=== PATIENT | female | born 1955 | race Caucasian/White ===

== ENCOUNTER 2021-07-16 05:02 | Observation (INO) ==
--- NOTE | 2021-06-11 11:11 | PAT Medication Instructions ---
Medication Instructions Date of Service June 11, 2021 Home Medications cholecalciferol (vitamin D3) 25 mcg (1,000 unit) tablet (Vitamin D3) 25 mcg PO QAM coQ10 (ubiquinol) 100 mg capsule 100 mg PO QAM ibuprofen 200 mg tablet 400 mg PO Q6H PRN lisinopril 2.5 mg tablet 2.5 mg PO QAM multivitamin 1 tab PO QAM ASK your surgeon for instructions ibuprofen 200 mg tablet 400 mg PO Q6H PRN STOP taking 2 weeks before surgery (or as soon as possible if surgery is within 2 weeks) coQ10 (ubiquinol) 100 mg capsule 100 mg PO QAM DO NOT take the morning of surgery cholecalciferol (vitamin D3) 25 mcg (1,000 unit) tablet (Vitamin D3) 25 mcg PO QAM lisinopril 2.5 mg tablet 2.5 mg PO QAM multivitamin 1 tab PO QAM Other Notes If you have any questions please call us at [phone] or [phone] or [phone] or [phone]
--- NOTE | 2021-06-13 11:25 | Anesthesiology Consultation ---
Date of Service June 13, 2021 Assessment & Plan (1) Encounter for pre-operative examination: - PCP pre-op appointment 06/19/2021 [facility] per pt and [facility] records. - Outpatient joint assessment: Patient is currently scheduled for inpatient pathway. If re-evaluated pending system levels during current pandemic/surgeon requests outpatient pathway, patient is acceptable candidate for outpatient joint program from anesthesia standpoint pending surgeon's office assessment of pt motivation/support/completion of same day joint program preop requirements. - COVID screening: Per assessment on 06/13/2021: Travel screen[place] , no known COVID-19 positive contacts or current COVID-19 related symptoms. Patient vaccinated. Surgeon arranging preop COVID testing, scheduled 07/14/2020 [place]. Awaiting results. Chart Review Chart Review: Acceptable Risk for Surgery (pending most recent PCP note) and Patient seen in Pre Admission Testing Teaching & Discussion Pre-Anesthesia Teaching/Discussion Notes: Instructed NPO after midnight before surgery, except medications with 15 cc of water. Medication instructions provided according to the PAT guidelines. History Surgery Operation Date: 07/16/21 07:15 Proposed Procedures p Left Total Knee Arthroplasty, Hardware Removal - Moises Melvin MD Height/Weight Height: 5 ft 7 in Weight: 63.5 kg Allergies Allergy/AdvReac Type Severity Reaction Status Date / Time No Known Allergies Allergy Verified 06/11/21 09:49 Medications Home Medications Medication Instructions Recorded Confirmed Last Taken cholecalciferol (vitamin D3) 25 25 mcg PO QAM 06/11/21 06/11/21 Unknown mcg (1,000 unit) tablet (Vitamin D3) coQ10 (ubiquinol) 100 mg capsule 100 mg PO QAM 06/11/21 06/11/21 Unknown ibuprofen 200 mg tablet 400 mg PO Q6H PRN 06/11/21 06/11/21 Unknown lisinopril 2.5 mg tablet 2.5 mg PO QAM 06/11/21 06/11/21 Unknown multivitamin 1 tab PO QAM 06/11/21 06/11/21 Unknown Past Medical History Medical History (Updated 06/13/21 @ 11:47 by Yoli Araujo PA-C) Arthritis Hypertension controlled, stable per pt Patient denies h/o stroke, seizures, heart attack, heart failure, DM, blood clots or blood transfusions. Exercise / Class Metabolic Activity II 4-5 Yardwork/Stairs/Walk up hill (denies CP or SOB with 1 FOS) Past Family History Family History Other No family history of adverse response to anesthesia Past Surgical History Surgical History (Updated 06/13/21 @ 11:47 by Yoli Araujo PA-C) Bone spur left knee H/O knee surgery ACL REPAIR + MENISCUS REPAIR (WITH SCREW) H/O rhinoplasty History of carpal tunnel release RT History of colonoscopy History of repair of retinal tear by laser photocoagulation RT/LEFT Past Anesthesia History No Hx of Anesthesia Complications and No Family Hx of Anesthesia Complications History of PONV No Hx of PONV and No Hx of Motion Sickness Social History Smoking Status: Former smoker tobacco type: cigarettes Do You Dip or Chew Tobacco: No Smoking End Date: 13 yrs ago-few cigarettes daily x 30 yrs Hx Alcohol Use: Yes Alcohol type: wine alcohol intake frequency: 0-2 drinks per day (1-2 alcoholic drinks daily) substance use type: does not use Review of Systems Occasional snoring, denies witnessed apneas or sleep studies. She reports nonproductive cough since starting lisinopril, increased somewhat with recent sinusitis and resolving. Patient denies chest pain, shortness of breath, dyspnea on exertion, reflux, fever, chills, wheezing, or palpitations. Physical Exam Vital Signs Vitals BP 127/71 P 69 TEMP 98.3 SP02 96% on RA RESP 17 Physical Full cervical extension range of motion without pain Full TMJ range of motion TMD 3.5 finger breaths Mallampati Score 2 Dentition: intact, caps two back lower bilat and one top left; denies missing, chipped teeth or loose teeth, implants or bridges Lungs: normal respiratory effort. Clear throughout to auscultation, no adventitious breath sounds Cardiac: regular rate and rhythm, no murmurs noted Carotid arteries: negative bruit bilat Extremities: no distal extremity edema Lab Results Anesthesia Preop Results Results Anesthesia Widget: WBC 6.43 K/uL (4.8-10.8) 06/13/21 Hgb 14.8 g/dL (12.0-16.0) 06/13/21 Hct 46.2 % (37-47) 06/13/21 Plt 303 K/uL (130-400) 06/13/21 Na 141 mmol/L (136-145) 06/13/21 K 4.1 mmol/L (3.5-5.1) 06/13/21 Cl 106 mmol/L (98-107) 06/13/21 CO2 31 mmol/L (21-32) 06/13/21 BUN 20 mg/dl (7-18) H 06/13/21 Creat 0.83 mg/dl (0.6-1.2) 06/13/21 Glucose Level 93 mg/dl (70-99) 06/13/21 PT 10.3 Seconds (9.0-12.0) 06/13/21 PTT 25.5 Seconds (21.0-31.0) 06/13/21 INR 1.0 (0.9-1.1) 06/13/21 HA1c 5.4 % (4.5-5.6) 06/13/21 Urine Color Yellow 06/13/21 Urine Appearance Clear (Clear) 06/13/21 Urine pH 7.0 (4.5-7.5) 06/13/21 Urine Specific [place] 1.013 (1.000-1.030) 06/13/21 Urine Protein Negative (Negative) 06/13/21 Urine Glucose (UA) Negative (Negative) 06/13/21 Urine Ketones Negative (Negative) 06/13/21 Urine Blood Negative (Negative) 06/13/21 Urine Nitrite Negative (Negative) 06/13/21 Urine Bilirubin Negative (Negative) 06/13/21 Urine Urobilinogen Negative (Negative) 06/13/21 Urine Leukocyte Esterase Negative (Negative) 06/13/21 Blood Type O Positive 06/13/21 Antibody Screen NEGATIVE 06/13/21 Testing Electrocardiogram Date: 06/13/21 Normal sinus rhythm, rate 65 bpm. Chest X-Ray Date: 06/13/21 No acute process.
--- NOTE | 2021-07-15 17:20 | History & Physical Report ---
Date of Service July 15, 2021 Assessment & Plan (1) Primary osteoarthritis of left knee: Plan: Treatment options discussed with the patient. She has severe left knee osteoarthritis. She would like to proceed with surgical intervention. Risks, benefits and alternatives to surgery including but not limited to infection, DVT, pain, stiffness, need for revision surgery, damage to blood vessels, damage to nerves, PE, , were discussed with the patient and they wish to proceed. Plan on left total knee arthroplasty at [facility] scheduled for 07/16/21. Will plan on home health vs OPPT post op. Will plan on aspirin 81mg BID for 1 mo post op. Will require Dilaudid po as her post operative pain medication. All questions answered. F/u post op. History of Present Illness Chief Complaint: Left knee pain Primary Care Provider: NO PCP 65 year old female with PMHx significant for HTN presents with ongoing left knee pain. Gallito has failed conservative measures including injections and anti- inflammatories. She has pain interfering with her daily activities. She would like to proceed with knee replaccement. Patient denies headaches, sweats, fevers, chills, double vision, blurred vision, cough, sore throat, dysphagia, chest pain, sob, wheezing, n/v/d/c, numbness, tingling, fatigue, urinary symptoms, mood disorders. ROS positive for left knee pain and stiffness. Allergies Allergy/AdvReac Type Severity Reaction Status Date / Time No Known Allergies Allergy Verified 06/11/21 09:49 Home Medications Medication Instructions Recorded Confirmed Type cholecalciferol (vitamin D3) 25 25 mcg PO QAM 06/11/21 06/11/21 History mcg (1,000 unit) tablet (Vitamin D3) coQ10 (ubiquinol) 100 mg capsule 100 mg PO QAM 06/11/21 06/11/21 History ibuprofen 200 mg tablet 400 mg PO Q6H PRN 06/11/21 06/11/21 History lisinopril 2.5 mg tablet 2.5 mg PO QAM 06/11/21 06/11/21 History multivitamin 1 tab PO QAM 06/11/21 06/11/21 History Past Med/Surg History Medical History (Updated 07/15/21 @ 17:26 by Chandler Baker) Arthritis Hypertension controlled, stable per pt Surgical History (Updated 06/13/21 @ 11:47 by Yoli Araujo PA-C) Bone spur left knee H/O knee surgery ACL REPAIR + MENISCUS REPAIR (WITH SCREW) H/O rhinoplasty History of carpal tunnel release RT History of colonoscopy History of repair of retinal tear by laser photocoagulation RT/LEFT Family History Other No family history of adverse response to anesthesia Social History Smoking Status: Former smoker Second Hand Exposure: No; Hx Alcohol Use: Yes Alcohol type: wine Preferred Language: Tajik Cotton Opener Required: No Beliefs That Will Affect Care: None Current Living Situation: Spouse Feels Safe at Home: Yes Assistive Devices: Brace/Splint/Immobilizer Review of Systems All systems reviewed & are unremarkable except as noted in HPI & below Physical Exam Constitutional: well developed and well nourished; no acute distress Eyes: PERRL, conjunctivae normal, anicteric sclerae ENMT: external ear and nose normal, oropharynx normal Neck: trachea midline, no thyromegaly Respiratory: normal respiratory effort, lungs clear to auscultation Cardiovascular: RRR, no murmur, no edema Musculoskeletal: Left knee: Varus alignment. Mild effusion. Tenderness medial joint line. Stable to valgus and varus stress, negative Reba's. ROM is about 5-130 degrees. Skin: no rashes, warm and dry Neurologic: patellar DTR's 2+ bilat, sensation intact Psychiatric: A+Ox3, euthymic affect Results & Data ([facility]) Diagnostic Findings Left knee radiographs: Tricompartmental degenerative changes with severe joint space narrowing, bone on bone medial compartment with bone loss. Has a tibial screw consistent with prior ACL reconstruction.
[2021-07-16] MEDS ORDERED: dexAMETHasone 4 MG TAB PO SCH (06:00)
[2021-07-16] MEDS ORDERED: TRANEXAMIC ACID 1,000 MG **IV Pre-op IV SCH (06:00)
[2021-07-16] MEDS ORDERED: ceFAZolin 1000MG 1,000 MG/7.5 ML SYR IV SCH (06:00)
[2021-07-16] MEDS ORDERED: TRANEXAMIC ACID 1,000 MG **IV Intra-op IV SCH (06:00)
[2021-07-16] MEDS ORDERED: CeleBREX 200 MG CAP PO SCH (06:00)
[2021-07-16] MEDS ORDERED: FAMOTIDINE 20 MG TAB PO SCH (06:00)
[2021-07-16] MEDS ORDERED: ACETAMINOPHEN 500 MG TAB PO SCH (06:00)
[2021-07-16] MEDS ORDERED: ROPIVACAINE 0.5% HCL/PF 150 MG, BUPIVACAINE 0.75% MPF 20 ML, EPINEPHrine 30MG/30ML (OR ... INSTIL SCH (06:00)
[2021-07-16] MEDS ORDERED: METOCLOPRAMIDE HCL 10 MG TABLET PO SCH (06:00)
[2021-07-16] MEDS ORDERED: LR 500ML BOLUS, THEN 15ML/HR IV SCH (06:00)
[2021-07-16] MEDS ORDERED: GABAPENTIN 600 MG DOSE PO SCH (06:00)
[2021-07-16] MEDS ORDERED: BUPIVACAINE 0.5 % 5 MG/1 ML PF 10ML VIAL ONE (06:22)
[2021-07-16] MEDS ORDERED: fentaNYL citrate 100 MCG/2 ML VIAL ONE (06:38)
[2021-07-16] MEDS ORDERED: MIDAZOLAM HCL 1 MG/ML 2ML VIAL ONE (06:38)
[2021-07-16] MEDS ORDERED: ATROPINE SULFATE 0.1 MG/ML 10ML SYR IV PRN (06:41)
[2021-07-16] MEDS ORDERED: ePHEDrine sulfate 50 MG/ML AMP IV PRN (06:41)
[2021-07-16] MEDS ORDERED: fentaNYL citrate 100 MCG/2 ML VIAL IV PRN (06:41)
[2021-07-16] MEDS ORDERED: ONDANSETRON INJ 2 MG/ML 2 ML VIAL IV PRN ×2 (06:41→11:08)
[2021-07-16] MEDS ORDERED: LIDOCAINE 2% 2 ML VIAL/AMP(20MG/ML) INFIL ONE (06:42)
[2021-07-16] MEDS ORDERED: PROPOFOL IV EMULSION 10 MG/ML 20 ML VIAL IV ONE (06:42)
[2021-07-16] MEDS ORDERED: ORTHO JOINT ANESTHETIC ONE (06:43)
--- NOTE | 2021-07-16 07:13 | History & Physical Bridge Note ---
Date of Service July 16, 2021 History & Physical Bridge Note I have examined the patient, reviewed the History & Physical and in the interval since the performance of the History & Physical I have noted the following changes of clinical significance: no changes noted
[2021-07-16] MEDS ORDERED: ONDANSETRON INJ 2 MG/ML 2 ML VIAL ONE (08:00)
[2021-07-16] MEDS ORDERED: TRANEXAMIC ACID / 0.7% NACL 1000MG/100ML BAG IV ONE ×2 (08:32)
--- NOTE | 2021-07-16 09:52 | Post Operative Brief Note ---
Immediate Post Op Note v1 Date of Surgery July 16, 2021 Pre & Post Diagnosis Operation Date: 07/16/21 07:00 Pre-Op Diagnosis: Osteoarthritis, Left Knee, history of prior ACL reconstruction with retained hardware Post-Op Diagnosis: Osteoarthritis, Left Knee, history of prior ACL reconstruction with retained hardware I identified the patient and participated in the time-out.: Yes Procedure Operation Date: 07/16/21 07:00 Actual Procedures p Left Total Knee Arthroplasty, lateral release, hardware Removal(Left) - Moises Melvin MD Surgeon Moises Melvin MD Trans Router Shaheen VIDES Estimated Blood Loss 5 Findings Consistent with Post-Op Diagnosis Drains Hemovac Drain Anesthesia Type MAC Spinal Regional Complications none Disposition Disposition: Recovery Room Overlapping Procedure I was immediately available: during the entire case.
--- NOTE | 2021-07-16 10:09 | Operative Report ---
Post Operative Report Pre & Post Diagnosis Operation Date: 07/16/21 07:00 Pre-Op Diagnosis: Left knee end-stage osteoarthritis history of prior ACL reconstruction with retained hardware tibia Post-Op Diagnosis: Left knee end-stage osteoarthritis history of prior ACL reconstruction with retained hardware tibia I identified the patient and participated in the time-out.: Yes Procedure Operation Date: 07/16/21 07:00 Actual Procedures p Left Total Knee Arthroplasty, Hardware Removal(Left) - Moises Melvin MD Surgeon Moises Melvin MD Administrative Aide Shaheen VIDES Estimated Blood Loss 5 Findings Consistent with Post-Op Diagnosis Specimens Bone cuts Drains 2 Hemovac Anesthesia Type MAC Spinal Regional Complications none Disposition Accompanied Patient To Recovery: Yes Indications 65 female history of ACL reconstruction with clinically failed ACL reconstruction and progressive osteoarthritis now [id number] medial compartment with a varus knee tricompartmental osteoarthritic changes. Patient has pain and instability. Description of Procedure Patient was taken to the operating room placed supine on the operating table and anesthetized under spinal MAC regional block anesthesia. Exam under anesthesia demonstrated positive Diamond exam no endpoint no collateral instability with a varus knee small effusion. She had a 10 to 15 degree flexion contracture with excellent flexion to 130 degrees. There was a prominent screw proximal medial tibial plateau from previous ACL reconstruction which is palpable underlying the skin next to a small 2 cm incision. A pneumatic tourniquet was placed about the thigh of the left lower extremity. The left lower extremity was prepped and draped in usual sterile fashion. The leg was elevated exsanguinated with an Esmarch bandage and the pneumatic tourniquet was raised to 300 mm mercury. The small scar from the old incision was opened up longitudinally and the subcutaneous tissues were divided down to the screw. Screw was easily identifiable removed with a screwdriver and washer was removed and some old suture material was debrided and removed. A second longitudinal anterior incision was made across the left knee. The skin was incised longitudinally subcutaneous flaps were elevated and an incision was made through the medial retinaculum extending up into the mid third of the quadriceps tendon and extended down to the medial tibial tubercle. Intra-articular findings demonstrated tricompartmental osteoarthritis with [id number] medial compartment complete failure of prior ACL graft with absent ACL. Old medial meniscus damage and tearing. There are some loose bodies. The knee was exposed by excising the loose bodies, the infrapatellar fat pad, excising the meniscal remnants. Any inflamed synovial tissue was resected. The fat pad over the anterior femur was resected for placement of the component in that area. The lateral synovial bands were release. The femur was exposed. The intramedullary drill hole was placed into the femur and the distal femoral cutting block was applied and a +2 cut was made due to the flexion contracture. The distal fem oral cut was made with the oscillating saw. The sizing guide was placed and the femur was measured for a size 7 implant which was the best medial lateral positioning but we used a +2 holes to prevent anterior notching. The size 7, 4-in-1 cutting block was placed. The anterior and posterior chamfer cuts were made. The knee was extended and a subperiosteal peel lateral release was performed around the patella. The patella width was measured and width was reproduced using freehand cut technique. The 32 x 8.5 millimeter symmetrical patella was used. 3 drill holes are made for the pegs. The tibia was exposed. An external tibial cutting guide was positioned and pinned in position. Tibial cut was made perpendicular to the long axis of the tibia matching the posterior slope. Cut was made just below the most deficient medial side of which the bone was very sclerotic there. All osteophytes were resected. Drill holes were made in the medial sclerotic bone superior surface to enhance cement fixation. The ACL graft was curetted out of the tibia leaving some of the soft tissue and periosteum and graft material to help block some of the cement extravasation. Old suture material was also removed from within the proximal tibia. This was debrided with a rongeur and a curette. The lamina mechanic senior was used to assess ligamentous balance and the ligaments were balanced in extension and flexion. This required a medial ,posterior medial release subperiosteal. The tibia was reexposed and measured for a size E left tibial component. This was externally rotated in line with the tibial tubercle and the fixation pins were drilled. The proximal tibia was fashioned with the drill with extended drill for the stubby stem extension and punch. The size 7 femoral trial was inserted. The trial MC inserts were used. The 12 mm insert gave balanced ligaments through full range of motion. The patella tracked with some lateral liftoff so had to do a lateral release subperiosteally leaving the synovium intact which allowed central patellar tracking. The trials were removed. The orthomix anesthetic cocktail was injected per protocol. The knee was then copiously irrigated with pulsatile lavage saline solution. The final components were cemented with Refobacin bone cement. The final components were persona [employer] E tibia was cemented stem extension, 7 CR left femur, 12 MC left polyethylene 4 tibia, 32 x 8.5 patella after the cement cured with the knee in full extension the Betadine soak was used per protocol. The knee joint was copiously irrigated with pulsatile lavage saline solution . 2 drains were brought out laterally and connected to a Hemovac. The quadriceps tendon and medial retinaculum were closed with interrupted [id number] #1 Vicryl sutures. The knee was taken through a full range of motion and repair was secure. The subcutaneous tissues of both incisions were closed with 2-0 Vicryl sutures and skin was closed with destiny. Sterile dressings were applied and the patient tolerated the procedure well. Shaheen VIDES my physician glass ribbon machine operator assistant, assisted in all aspects of the surgical procedure including soft tissue retraction, instrument management ,leg positioning, the closure and will participate in the postoperative care of the patient. I attest to the content of the Intraoperative Record and any orders documented therein. Any exceptions are noted below.
--- NOTE | 2021-07-16 10:18 | XRay Report ---
XR knee LT 1 or 2V routine CLINICAL HISTORY: Postoperative evaluation. COMPARISON: None FINDINGS: Alignment of the total left knee arthroplasty is anatomic. No periprosthetic fracture or u nexpected radiopaque foreign body. Surgical drains and skin destiny are present. IMPRESSION: Expected findings following total left knee arthroplasty. ACT 112: Negative or not required by law. Electronically signed by: Jah Vergara M.D. 07/16/2021 10:17 AM
[2021-07-16] MEDS ORDERED: METOCLOPRAMIDE HCL INJ 5 MG/ML 2 ML VIAL IV PRN (11:08)
[2021-07-16] MEDS ORDERED: NALOXONE HCL 0.4 MG/1 ML VIAL/CARP IV PRN (11:08)
[2021-07-16] MEDS ORDERED: MAGNESIUM HYDROXIDE SUSP 30 ML UDC PO PRN (11:08)
[2021-07-16] MEDS ORDERED: bisacodyL 10 MG SUPP PR PRN (11:08)
--- NOTE | 2021-07-16 11:19 | Anesthesiology Progress Note ---
Date of Service July 16, 2021 Anesthesia Post Procedure Vital Signs Vital Signs: Temp Pulse Pulse Resp BP Pulse Ox 07/16/21 11:05 71 20 102/68 98 07/16/21 10:55 64 17 108/65 97 07/16/21 10:45 97.2 F L 64 18 105/64 97 07/16/21 10:35 65 21 119/62 96 07/16/21 10:25 61 14 97/58 L 96 07/16/21 10:15 64 17 118/67 100 07/16/21 10:05 72 19 111/58 L 100 07/16/21 09:58 98.2 F 64 64 21 110/64 100 07/16/21 05:31 97.9 F 78 20 159/84 H 97 Pain Intensity Left Knee: Pain Intensity: 0 Transfer of Care Handoff Completed per policy Notes Mental Status: alert / awake / arousable and participated in evaluation Patient Amnestic to Procedure: Yes Nausea / Vomiting: adequately controlled Pain: adequately controlled Airway Patency, RR, SpO2: stable & adequate BP & HR: stable & adequate Hydration State: stable & adequate Neuraxial Anesthesia: was administered and sensory block is resolving Anesthetic Complications: no major complications apparent and Pt Satisfied with anesthetic care
[2021-07-16] MEDS: SODIUM CHLORIDE 0.9% 1000ML 1,000 ML IV SCH ×2 (13:02→23:33)
[2021-07-16] MEDS: ACETAMINOPHEN 500 MG TAB PO SCH ×2 (13:02→21:46)
[2021-07-16] MEDS: HYDROmorphone HCL 2 MG TAB PO PRN ×2 (14:32→20:50)
--- NOTE | 2021-07-16 16:16 | Hospitalist Consultation ---
Date of Consultation July 16, 2021 Assessment & Plan (1) S/P total knee arthroplasty: - Recommend pain control --> will defer to primary team - DVT ppx advised for minimum of 14 days; drug choice, dose, duration at discretion of ortho - Use of incentive spirometer q1h while awake for atelectasis and PNA prevention - Perioperative antibiotics - PT/OT eval - Hemovac care w/ removal as outlined by ortho (2) Essential hypertension: - Hold Lisinopril POD#1 to avoid BILL and/or hypotension - May be resumed POD#2 as prescribed prior to hospitalization (3) Osteoarthritis: - No specific plan other than as outlined in #1 Recommend f/u H&H and BMP in AM. Aside from above, no other recommendations at this time. Medicine will sign off. Please feel free to reconsult if the need should arise. Thank you for allowing us to participate in the care of this patient. Plan has been d/w Dr. Arizmendi. Supervising Physician Co-Signing Physician Notes Patient was seen and examined independently I discussed the case with Gayle ESPINOZA I reviewed pertinent past medical social family history and also the plan of care and agree with the plan of care. Pt is resting comfortably post operatively, pain is controlled, no acute issues right leg distal pulse and sensation intact cardiac exam is regular and lungs clear anticipate expedited discharge will sign off but chart check tomorrow Any exceptions will be noted below History of Present Illness Reason for Consultation: Medical management Requesting Physician: Dr. Melvin Attending Physician: Moises Melvin MD History of Present Illness Zahida Montes is a 65 yo WF with a pmhx of HTN and OA who presented for elective L RASHAUN d/t chronic knee pain and OA that failed conservative measures. Pt was taken to the OR today, received spinal anesthesia. She was medicated intraoperatively with pain cocktail and prophylactic Ancef. She had an uneventful perioperative course, received an adductor canal nerve block. She is currently seen at bedside in her room. COVID test performed today was negative. She verbalizes no complaints. She reports the spinal anesthesia is wearing off, she did have a "pain pill" around 2pm to stay ahead of it. Currently denies knee pain. She denies cp, dyspnea, n/v/d, f/c, headache, or gu symptoms. She has voided since surgery. Has not yet passed flatus or had a BM. She did eat lunch. She denies having a family h/o blood clots and no personal history of them. She lives in a two story home, plans to return to her own home and do outpatient rehab. Hospitalists have been consulted for routine medical management. Allergies Allergy/AdvReac Type Severity Reaction Status Date / Time No Known Allergies Allergy Verified 07/16/21 05:23 Home Medications Medication Instructions Recorded Confirmed Type cholecalciferol (vitamin D3) 25 25 mcg PO QAM 06/11/21 07/16/21 History mcg (1,000 unit) tablet (Vitamin D3) coQ10 (ubiquinol) 100 mg capsule 100 mg PO QAM 06/11/21 07/16/21 History ibuprofen 200 mg tablet 400 mg PO Q6H PRN 06/11/21 07/16/21 History lisinopril 2.5 mg tablet 2.5 mg PO QAM 06/11/21 07/16/21 History multivitamin 1 tab PO QAM 06/11/21 07/16/21 History Patient History Medical History (Updated 07/16/21 @ 16:09 by Gayle Mayen PA-C) Arthritis Hypertension controlled, stable per pt Surgical History (Updated 07/16/21 @ 16:09 by Gayle Mayen PA-C) Bone spur left knee H/O knee surgery ACL REPAIR + MENISCUS REPAIR (WITH SCREW) H/O rhinoplasty History of carpal tunnel release RT History of colonoscopy History of repair of retinal tear by laser photocoagulation RT/LEFT Family History Other No family history of adverse response to anesthesia Social History Smoking Status: Former smoker Smoking End Date: 13 yrs ago-few cigarettes daily x 30 yrs; Second Hand Exposure: No; Do You Dip or Chew Tobacco: No; Hx Alcohol Use: Yes Alcohol type: wine Preferred Language: Greenlandic Cleaner And Trimmer Required: No Beliefs That Will Affect Care: None Current Living Situation: Spouse Feels Safe at Home: Yes Safety Concerns: Feels Safe At This Time Assistive Devices: Brace/Splint/Immobilizer Review of Systems Review of Systems: CONSTITUTIONAL: Denies weight loss/gain, fever and chills, fatigue, malaise, generalized weakness. HEENT: Denies changes in vision and hearing. RESPIRATORY: Denies SOB, cough, wheezing. CV: Denies palpitations, CP, lower extremity edema, orthopnea, PND. GI: Denies abdominal pain, nausea, vomiting and diarrhea. : Denies dysuria and urinary frequency, urgency, hesitancy. MUSCULOSKELETAL: Denies myalgia and joint pain. SKIN: Denies rash and pruritus. NEUROLOGICAL: Denies headache, syncope, focal weakness, numbness, tingling. PSYCHIATRIC: Denies recent changes in mood. Denies anxiety and depression. Physical Exam Physical Exam: GENERAL: 65 yo WD/WN middle aged WF. NAD. EYES: EOMI. PERRLA. Anicteric. HENT: Moist mucous membranes. No scleral icterus. No cervical lymphadenopathy. LUNGS: Clear to auscultation bilaterally. No accessory muscle use. No W/R/R. CARDIOVASCULAR: Regular rate and rhythm. No M/G/R. No JVD. ABDOMEN: Soft, non-tender and non-distended. No palpable masses. Bowel sounds normoactive x 4 quad. EXTREMITIES: No edema. Non-tender. Peripheral pulses +2/4. Left knee dressed/wrapped in maria fernanda. Hemovac present. Neg melvin's. NEUROLOGIC: A&O x3. No focal neurological deficits. CN II-XII grossly intact. PSYCHIATRIC: Cooperative. Appropriate mood and affect. SKIN: Warm, dry, intact. No rashes or lesions. Results & Data Results & Data ([facility]) Vital Signs (Past 12 Hours) Vital Signs Temp Pulse Pulse Resp BP Pulse Ox 07/16/21 15:40 36.6 C 74 16 101/60 95 07/16/21 14:49 77 16 114/70 95 07/16/21 13:41 85 16 121/62 97 07/16/21 13:09 76 16 104/66 98 07/16/21 12:44 37.2 C 73 16 105/59 L 97 07/16/21 12:10 64 20 98/57 L 95 07/16/21 11:50 65 17 104/62 96 07/16/21 11:35 62 14 108/53 L 97 07/16/21 11:20 61 20 105/61 98 07/16/21 11:05 71 20 102/68 98 07/16/21 10:55 64 17 108/65 97 07/16/21 10:45 36.2 C L 64 18 105/64 97 07/16/21 10:35 65 21 119/62 96 07/16/21 10:25 61 14 97/58 L 96 07/16/21 10:15 64 17 118/67 100 07/16/21 10:05 72 19 111/58 L 100 07/16/21 09:58 36.8 C 64 64 21 110/64 100 07/16/21 05:31 36.6 C 78 20 159/84 H 97 Laboratory Results No labs done today Screening COVID test negative Last labs done on 06/13/21, including cbc, bmp, coags, and UA--I have personally reviewed labs and no abnormalities appreciated Diagnostic Findings Knee X-Ray 07/16/21 10:01 XR knee LT 1 or 2V routine CLINICAL HISTORY: Postoperative evaluation. COMPARISON: None FINDINGS: Alignment of the total left knee arthroplasty is anatomic. No periprosthetic fracture or unexpected radiopaque foreign body. Surgical drains and skin destiny are present. IMPRESSION: Expected findings following total left knee arthroplasty. ACT 112: Negative or not required by law. Electronically signed by: Jah Vergara M.D. 07/16/2021 10:17 AM ECG Additional Comments: Dated 06/13/21 --> NSR w/o ST-T wave changes PG Care Time/CCT Total # of Minutes Spent Total Time Spent with Patient: Total time spent is greater than 50% in coordination of care (as documented) at patient's floor/unit and/or counseling patient: Coding Level of Care Code 76162 Inpt Consult Level 4 Diagnoses S/P total knee arthroplasty Z96.659 Essential hypertension I10 Osteoarthritis M19.90
[2021-07-16] MEDS: ceFAZolin 1000MG 1,000 MG/7.5 ML SYR IV SCH ×2 (17:36→23:40)
[2021-07-16] MEDS: CeleBREX 200 MG CAP PO SCH (20:52)
[2021-07-16] MEDS: ASPIRIN 81 MG ECTAB PO SCH (20:53)
[2021-07-16] MEDS: DOCUSATE SODIUM 100 MG CAP PO SCH (20:54)
[2021-07-16] MEDS ORDERED: SENNA 8.6 MG TAB PO SCH (21:00)
[2021-07-17] MEDS ORDERED: CALCIUM CARBONATE 500 MG CHEWABLE TAB PO PRN (02:52)
[2021-07-17] MEDS: HYDROmorphone HCL 2 MG TAB PO PRN ×2 (03:05→09:30)
[2021-07-17] MEDS: ACETAMINOPHEN 500 MG TAB PO SCH (05:54)
[2021-07-17 06:21] LABS: Hematocrit (blood only) 34.6 % (37-47); Hemoglobin 11.2 g/dL (12.0-16.0); Mean Corpuscular Hemoglobin 30.5 pg (25-34); Mean Corpuscular Hgb Conc 32.4 g/dL (32-36); Mean Corpuscular Volume 94.3 fL (80-100); Mean Platelet Volume 10.3 fL (7.4-10.4); Platelet Count 189 K/uL (130-400); RDW Coefficient of Variation 12.7 % (11.5-14.5); Red Blood Count 3.67 M/uL (4.2-5.4); White Blood Count 11.19 K/uL (4.8-10.8)
[2021-07-17 06:50] LABS: BUN Creatinine Ratio 27.8 (10-20); Calcium 8.1 mg/dl (8.5-10.1); Creatinine Clr Calc Pharmacy 68.2 ml/min; Est GFR (African American) 92.3 ml/min; Est GFR (Non-African American) 79.7 ml/min; Potassium 4.2 mmol/L (3.5-5.1)
--- NOTE | 2021-07-17 07:32 | Orthopedic Progress Note ---
Date of Service July 17, 2021 Assessment & Plan (1) S/P total knee arthroplasty: Plan: Postop day 1 left total knee arthroplasty -PT/OT per protocol -DVT prophylaxis: ASA 81 mg twice daily, SCDs, teds -A.m. labs-hemoglobin 11.3 this morning from 14.8 acute blood loss anemia likely due to surgical loss versus dilutional effect. Creatinine at baseline -Discharge planning-plan on discharge home later today after therapy. Patient plans on doing outpatient physical therapy postoperatively. Admission and Anticipated Discharge Date Admission Date: July 16, 2021 Subjective Patient is postop day 1 status post left total knee. She is doing well. Pain is well controlled. No complaints at this time. Denies chest pain, shortness of breath, headache, fever, chills, n/v/d. Review of Systems Review of Systems: All systems reviewed & are unremarkable except as noted in Subjective Physical Exam Physical Exam: Left knee dressing is c/d/i. Hemovac intact. toes mobile. Good dorsiflexion, no calf tenderness. Distally n/v status and sensation intact Constitutional: WD/WN, vitals as above Results & Data ([facility]) Vital Signs (Past 12 Hours) Vital Signs Temp Pulse Resp BP Pulse Ox 07/17/21 02:50 36.7 C 63 20 116/68 94 07/16/21 21:55 36.4 C L 64 16 119/63 96 07/16/21 19:57 36.7 C 68 18 114/66 96 (1) S/P total knee arthroplasty Laterality: left Qualified Code(s): Z96.652 - Presence of left artificial knee joint
[2021-07-17] MEDS: ASPIRIN 81 MG ECTAB PO SCH (08:08)
[2021-07-17] MEDS: CeleBREX 200 MG CAP PO SCH (08:08)
[2021-07-17] MEDS: DOCUSATE SODIUM 100 MG CAP PO SCH (08:10)
[2021-07-17] MEDS ORDERED: MULTIVITAMIN TAB PO SCH ×2 (09:00)
[2021-07-17] MEDS ORDERED: lisinopril 2.5 MG TAB PO SCH (09:00)
[2021-07-17] MEDS ORDERED: CHOLECALCIFEROL 1,000 UNITS 25 MCG TAB PO SCH (09:00)
--- NOTE | 2021-07-17 17:12 | Discharge Summary ---
Date of Service July 17, 2021 Admission HPI Per Admitting Provider 65 year old female with PMHx significant for HTN presents with ongoing left knee pain. Gallito has failed conservative measures including injections and anti- inflammatories. She has pain interfering with her daily activities. She would like to proceed with knee replaccement. Patient denies headaches, sweats, fevers, chills, double vision, blurred vision, cough, sore throat, dysphagia, chest pain, sob, wheezing, n/v/d/c, numbness, tingling, fatigue, urinary symptoms, mood disorders. ROS positive for left knee pain and stiffness. Admission Exam Per Admitting Provider Constitutional: well developed and well nourished; no acute distress Eyes: PERRL, conjunctivae normal, anicteric sclerae ENMT: external ear and nose normal, oropharynx normal Neck: trachea midline, no thyromegaly Respiratory: normal respiratory effort, lungs clear to auscultation Cardiovascular: RRR, no murmur, no edema Musculoskeletal: Left knee: Varus alignment. Mild effusion. Tenderness medial joint line. Stable to valgus and varus stress, negative Reba's. ROM is about 5-130 degrees. Skin: no rashes, warm and dry Neurologic: patellar DTR's 2+ bilat, sensation intact Psychiatric: A+Ox3, euthymic affect Principal Diagnosis Left knee osteoarthritis Discharge Exam Left knee dressing is c/d/i. Hemovac intact. toes mobile. Good dorsiflexion, no calf tenderness. Distally n/v status and sensation intact Constitutional WD/WN, vitals as above well developed and well nourished; no acute distress Respiratory normal respiratory effort; no respiratory distress Cardiovascular Rate/Rhythm: regular rate and regular rhythm Extremities: no edema Skin no rashes, warm and dry Psychiatric A+Ox3, euthymic affect Discharge Data Allergies Allergy/AdvReac Type Severity Reaction Status Date / Time No Known Allergies Allergy Verified 07/16/21 05:23 Consultations Hospitalist consult Procedures Performed Operation Date: 07/16/21 07:00 Actual Procedures p Left Total Knee Arthroplasty, (Left) - Moises Melvin MD s Hardware Removal(Left) - Moises Melvin MD Ordered Studies 07/16/21 05:00 US - OR guided needle placemen Routine Hospital Course (1) S/P total knee arthroplasty: Patient presented for same day admission following left total knee arthroplasty on 07/16/21. She tolerated procedure well. The Patient had an uneventful hospital course. Post-operatively, her activity was progressed and well tolerated. They participated in PT with ambulation distance of 285 feet. ROM of operative knee reached 82 degrees. Labs remained stable- lowest hemoglobin recorded: 11.2. Dr. Ez Arizmendi of medical service was consulted for medical management during admission. Pain controlled on oral medications. Please refer to daily progress notes and PT notes for complete details. After exam on 07/17/21, patient was felt to be stable for discharge home with plans on attending outpatient PT. Patient will f/u in the office in about 2 weeks for further evaluation including x-rays and incision check, sooner if having any issues or concerns. Postop day 1 left total knee arthroplasty -PT/OT per protocol -DVT prophylaxis: ASA 81 mg twice daily, SCDs, teds -A.m. labs-hemoglobin 11.3 this morning from 14.8 acute blood loss anemia likely due to surgical loss versus dilutional effect. Creatinine at baseline -Discharge planning-plan on discharge home later today after therapy. Patient plans on doing outpatient physical therapy postoperatively. Lab Results 07/16/21 07/17/21 07/17/21 Range/Units 05:16 05:33 05:33 WBC 11.19 H (4.8-10.8) K/uL RBC 3.67 L (4.2-5.4) M/uL Hgb 11.2 L (12.0-16.0) g/dL Hct 34.6 L (37-47) % MCV 94.3 (80-100) fL MCH 30.5 (25-34) pg MCHC 32.4 (32-36) g/dL RDW Std Deviation 44.0 (36.4-46.3) fL RDW Coeff of Sheryl 12.7 (11.5-14.5) % Plt Count 189 (130-400) K/uL MPV 10.3 (7.4-10.4) fL Sodium 139 (136-145) mmol/L Potassium 4.2 (3.5-5.1) mmol/L Chloride 110 H (98-107) mmol/L Carbon Dioxide 24 (21-32) mmol/L Anion Gap 5 (3-11) BUN 22 (6-23) mg/dl Creatinine 0.79 (0.6-1.2) mg/dl Est Cr Clr Drug Dosing 68.2 ml/min Est GFR ( Amer) 92.3 ml/min Est GFR (Non-Af Amer) 79.7 ml/min BUN/Creatinine Ratio 27.8 H (10-20) Glucose 103 H (70-99) mg/dl Calcium 8.1 L (8.5-10.1) mg/dl SARS-CoV-2, RNA, NAAT NEGATIVE (NEGATIVE) Total Time Total Time Spent Total Time Spent (In Minutes): 20 Discharge Plan Discharge Items Patient Disposition: Home - Self-Care Reason For Visit: Osteoarthtis, Left Knee Discharge Diagnosis: Osteoarthritis Left Knee Activity: Per Instructions section Non-emergency contact: Surgeon Call non-emergency contact if: you have any medication questions, your pain is not controlled, your pain is concerning for you, you have a fever, your temperature is above 101, your wound has increased redness, your wound has increased drainage and your wound pain has increased Follow-up/Referrals: Moises Melvin MD [Surgeon] - 07/31/21 10:30 am [facility] [Primary Care Provider] - Diet: Regular Addtl Attending Provider Instructions: ACTIVITY RECOMMENDATIONS: SELF CARE INSTRUCTIONS AFTER TOTAL KNEE REPLACEMENT A. You may need to continue a physical therapy program after discharge from the hospital. There are several options available to you. Your doctor will assist you in selecting the best one for you. 1. An out-patient facility 2 to 3 times a week for therapy or home therapy. 2. Continue working on all exercises taught to you in the hospital. Your goals should be to increase bending of your knee to 90 degrees and beyond and to fully straighten your knee. B. You may progress at your own pace from walking with a walker or crutches to a cane; then to no assistive devices. C. Make walking a part of your daily routine. Be up as much as comfortable with rest periods throughout the day. Rest with leg elevation is very important. Use the ice wrap frequently for the first 3-4 weeks. D. There are no restrictions on activities. You may ride in a car, shop, participate in rental sales representative and all social activities. E. Wear the long elastic stockings (KAYLAH hose) 20 hours a day for 2 weeks after surgery. They can be removed several times a day for laundering and for a bath. F. You may shower 72 hours after surgery, , no tub baths until cleared by your doctor. No hot tubs/swimming pools. SPECIAL CARE INSTRUCTIONS: VERY IMPORTANT TO READ AND REVIEW A. There are a few signs you need to watch for after you are home. Call [facility] if you notice any of the followin. Increased severe knee pain. Some pain is expected especially when you exercise. 2. Increased swelling in your leg or knee; pain or swelling of the calf muscle in either lower leg. 3. Any fluid drainage from the incision. 4. Shortness of breath or chest pain. B. Please call [facility] at if you have any concerns or questions about your operation or recovery. The doctor or his nurse will return your call promptly. C. You must take antibiotics before dental work, bladder, bowel or other surgery. Your doctor will provide you with a permanent care to carry describing this precaution. IMPORTANT: * REMEMBER TO TAKE ASPIRIN, 81 MG, TWICE DAILY FOR 4 WEEKS UNLESS OTHERWISE DIRECTED. THIS IS YOUR BLOOD THINNER. * HIGH RISK PATIENTS MAY BE PRESCRIBED A STRONGER BLOOD THINNER. THIS WILL BE PROVIDED AT DISCHARGE. * CALL IF INCREASED PAIN, REDNESS, DRAINAGE OR FEVER GREATER THAT 101. * WEAR KAYLAH HOSE 20 HOURS PER DAY FOR 2 WEEKS. * Change your dressing daily. You can use 4x4 gauze and an maria fernanda wrap. Keep dressing clean and dry. Call the offfice if you notice increased redness of the wound, increased drainage, increased swelling with pain, or temp 101.5 or greater. . FOLLOW UP VISIT: If appointment is not already scheduled: Please call [facility] to make a follow-up appointment for 2 weeks after your surgery at . Stand-Alone Forms: My Rentlord, Opioid Pain Management, Smoking Cessation Medications and DC Order Prescriptions: New acetaminophen [Tylenol Extra Strength] 500 mg Tablet 1,000 mg PO Q8 Qty: 60 RF: 0 aspirin 81 mg Tablet,Delayed Release (Dr/Ec) 81 mg PO BID Qty: 60 RF: 0 hydromorphone [Dilaudid] 2 mg Tablet 2 mg PO Q6H PRN (Reason: pain) Qty: 30 RF: 0 ketorolac 10 mg tablet 10 mg PO TID Qty: 15 RF: 0 cefadroxil 500 mg capsule 500 mg PO BID Qty: 14 RF: 0 celecoxib [Celebrex] 200 mg Capsule 200 mg PO BID Qty: 60 RF: 0 Continued multivitamin Tablet 1 tab PO QAM RF: 0 lisinopril 2.5 mg Tablet 2.5 mg PO QAM RF: 0 cholecalciferol (vitamin D3) [Vitamin D3] 25 mcg (1,000 unit) Tablet 25 mcg PO QAM RF: 0 coQ10 (ubiquinol) 100 mg Capsule 100 mg PO QAM RF: 0 Discontinued ibuprofen 200 mg Tablet 400 mg PO Q6H PRN (Reason: Pain) RF: 0 Discharge Orders: Discharge Order (Routine); Ordered 07/17/21 Ordered By: Chandler Barrett/Other Patient Handouts: DVT Post Op Prevention Admission Data Admit Date/Time: 07/16/21 10:01 Attending Provider: Moises Melvin Admit Provider: Moises Melvin Primary Care Provider: PCP,NO Other Interventions: Discharge Summary Assessment (RN) Last Done: 07/17/21 11:07
== END 2021-07-17 12:19 | disposition home or self-care (01) ==
LOC: ASU 05:02 → PACUINP 10:01 → INTOOBSV 10:01 → 3E 12:50